=== PATIENT | female | born 1990 | race Caucasian/White ===

== ENCOUNTER 2020-11-05 13:23 | Emergency (ER) | payer OTHER ==
[~2020-11-05] VITALS: Ht 162.6 cm; Wt 66.9 kg
[2020-11-05 18:13] VITALS: BP 129/82
== END 2020-11-05 18:13 | disposition home or self-care (01) ==
LOC: M ED 13:23
DX: R31.9 Hematuria, unspecified (principal); R10.9 Unspecified abdominal pain